=== PATIENT | female | born 1945 | race Caucasian/White ===

== ENCOUNTER 2023-03-18 09:49 | Outpatient (CLI) | payer MEDICARE | END 2023-03-18 09:50 | disposition home or self-care (01) | LOC: LABBT 09:49 | PROVIDERS: ATTEND Orthopaedic Surgery | DX: Z01.818 Encounter for other preprocedural examination (principal); M17.12 Unilateral primary osteoarthritis, left knee; T84.84XA Pain due to internal orthopedic prosthetic devices, implants and grafts, initial encounter | CPT/HCPCS: 71046; 93005; 93010 ==

== ENCOUNTER 2023-04-12 15:26 | Observation (INO) | payer MEDICARE ==
[2023-04-12 17:19] LABS: #Basophils 0.2 thou/uL (0.0-0.2); #Monocytes 1.3 thou/uL (0.11-0.59); #Neutrophils 6.4 thou/uL (1.40-6.50); %Basophils 1.3 % (0.0-1.0); %Eosinophils 7.2 % (0.0-10.0); %Lymphocytes 36.7 % (21.0-51.0); %Monocytes 9.5 % (0.0-10.0); Hematocrit 38.7 % (36.0-47.0); Hemoglobin 12.3 g/dL (12.0-16.0); Mean Corpuscular HGB CONC 31.8 g/dL (32.0-36.0); Mean Corpuscular Hemoglobin 29.4 pg (27.0-31.0); Mean Corpuscular Volume 92.6 fl (78.0-98.0); Mean Platelet Volume 10.4 fL (7.4-10.4); Platelet Count 572 10x3/uL (130-400); RBC Distribution Width 15.6 % (11.5-14.5); Red Blood Cell (RBC) Count 4.18 mill/uL (4.20-5.40); White Blood Cell (WBC) Count 14.1 10x3/uL (4.8-10.8)
[2023-04-12] MEDS ORDERED: fentaNYL 50 mcg/mL 1 mL Vial ONE (17:27)
[2023-04-12] MEDS ORDERED: PROPOFOL 20 ML ONE (17:27)
[2023-04-12] MEDS ORDERED: Ondansetron PF 4 MG/2 ML Vial ONE (17:28)
[2023-04-12] MEDS ORDERED: Lidocaine 1% PF 5 ML VIAL ONE (17:28)
[2023-04-12 17:39] LABS: Anion Gap 15 mmol/L (10-20); BUN (Urea Nitrogen) 19 mg/dL (9.8-20.1); Calc. Creatinine Clearance 0 mL/min (70-130); Calcium 9.1 mg/dL (7.8-10.44); Carbon Dioxide 22 mmol/L (23-31); Chloride 106 mmol/L (98-107); Estimated GFR 33; Glucose 73 mg/dL (83-110); Sodium 139 mmol/L (136-145)
[2023-04-12] MEDS ORDERED: Vancomycin 1 GM/200 ML (FROZEN) BAG ONE (17:52)
[2023-04-12] MEDS ORDERED: Sodium Chloride 0.9% 100 ML ONE (17:52)
[2023-04-12] MEDS ORDERED: CEFAZOLIN 2 GM VIAL ONE (17:52)
[2023-04-12] MEDS ORDERED: Promethazine HCl 25 MG/ML VIAL IM PRN (18:58)
[2023-04-12] MEDS ORDERED: Ondansetron HCl/PF 4 MG/2 ML Vial IVP PRN (18:58)
[2023-04-12] MEDS ORDERED: Alendronate Sodium 70 mg Tablet PO SCH (19:00)
[2023-04-12] MEDS ORDERED: Gabapentin 300 MG CAP PO SCH (21:00)
[2023-04-12] MEDS ORDERED: Vancomycin 1 GM in Premix 1 BAG IVPB SCH (21:00)
[2023-04-12] MEDS ORDERED: CEFAZOLIN 1 GM in Sodium Chloride 0.9% 100 ML IVPB SCH (22:00)
[2023-04-12 22:03] VITALS: BMI 30.9
[2023-04-12] MEDS: Sodium Chloride 0.9% 1,000 ML IV SCH (22:22)
[2023-04-12] MEDS: traMADol HCl 50 MG TAB PO PRN (22:23)
[2023-04-12] MEDS: Aspirin 81 mg Enteric Coated Tablet PO SCH (22:24)
[2023-04-13] MEDS: CEFAZOLIN 1 GM in Sodium Chloride 0.9% 100 ML IVPB SCH ×2 (01:13→09:12)
[2023-04-13] MEDS ORDERED: Bumetanide 1 MG TAB PO SCH (09:00)
[2023-04-13] MEDS ORDERED: DULoxetine 60 MG CAP PO SCH (09:00)
[2023-04-13] MEDS ORDERED: Atorvastatin Calcium 40 MG TAB PO SCH (09:00)
[2023-04-13] MEDS ORDERED: glipiZIDE XL 5 mg ER.TAB PO SCH (09:00)
[2023-04-13] MEDS ORDERED: Levothyroxine Sodium 75 MCG TAB PO SCH (09:00)
[2023-04-13] MEDS: Aspirin 81 mg Enteric Coated Tablet PO SCH (09:11)
[2023-04-13] MEDS: traMADol HCl 50 MG TAB PO PRN (10:41)
[2023-04-13] MEDS: Sodium Chloride 0.9% 1,000 ML IV SCH (11:55)
[2023-04-13] MEDS ORDERED: Vancomycin 1 GM in Premix 1 BAG IVPB SCH (12:15)
[2023-04-13 12:58] VITALS: TEMP 98.2
[2023-04-13 15:33] VITALS: BP 133/69
[2023-04-13] MEDS ORDERED: Vancomycin HCl 500 MG in Sodium Chloride 0.9% 100 ML IVPB SCH (18:00)
[2023-04-13] MEDS ORDERED: Vancomycin HCl 750 MG in Sodium Chloride 0.9% 250 ML 250 ML IVPB SCH (18:00)
== END 2023-04-13 16:19 | disposition home or self-care (01) ==
LOC: SJJU 16:13
PROVIDERS: ADMIT Orthopaedic Surgery; ATTEND Orthopaedic Surgery
PROC: 0S9D0ZZ Drainage of Left Knee Joint, Open Approach (ICD-10-PCS; principal; 2023-04-12)
DX: M96.842 Postprocedural seroma of a musculoskeletal structure following a musculoskeletal system procedure (principal); I25.2 Old myocardial infarction; I25.10 Atherosclerotic heart disease of native coronary artery without angina pectoris; E03.9 Hypothyroidism, unspecified; M19.90 Unspecified osteoarthritis, unspecified site; F10.20 Alcohol dependence, uncomplicated; F39 Unspecified mood [affective] disorder; Z90.710 Acquired absence of both cervix and uterus; Z90.89 Acquired absence of other organs; Z90.49 Acquired absence of other specified parts of digestive tract; Z98.890 Other specified postprocedural states; Z79.890 Hormone replacement therapy; Z79.899 Other long term (current) drug therapy; Z96.652 Presence of left artificial knee joint
CPT/HCPCS: 27301; 80048; 85025; J3010; J3370 ×2; J0690; J2405; J2704; J3490; J7050